=== PATIENT | female | born 1985 | race Caucasian/White ===

== ENCOUNTER 2018-05-13 16:08 | Emergency (ER) | payer MEDICAID ==
[2018-05-13] MEDS: IBUPROFEN 600 MG TAB PO (17:22)
== END 2018-05-13 18:13 | disposition home or self-care (01) ==
LOC: FTE 16:08
DX: S69.92XA Unspecified injury of left wrist, hand and finger(s), initial encounter (principal); J45.909 Unspecified asthma, uncomplicated; W23.1XXA Caught, crushed, jammed, or pinched between stationary objects, initial encounter; Y92.9 Unspecified place or not applicable
CPT/HCPCS: 29130; 73140; 99283-25